=== PATIENT | female | born 1960 | race Caucasian/White ===

== ENCOUNTER 2025-02-25 19:38 | Inpatient (IN) | payer OTHER ==
[~2025-02-25] VITALS: Ht 162.6 cm; Wt 72.6 kg
[2025-02-25 20:16] LABS: BASOPHILS ABSOLUTE AUTO 0.06 K/mm3 (0.00-0.23); BASOPHILS PERCENT AUTO 0 % (0-2); EOSINOPHILS ABSOLUTE AUTO 0.19 K/mm3 (0.00-0.68); EOSINOPHILS PERCENT AUTO 1 % (0-6); Hematocrit 39.5 % (33.0-51.0); Hemoglobin 13.2 g/dL (11.5-16.0); IMMATURE GRAN ABSOLUTE AUTO 0.07 K/mm3 (0.00-0.10); IMMATURE GRAN PERCENT AUTO 0 % (0-1); LYMPHOCYTES ABSOLUTE AUTO 3.25 K/mm3 (0.84-5.20); LYMPHOCYTES PERCENT AUTO 21 % (21-46); MONOCYTES ABSOLUTE AUTO 0.87 K/mm3 (0.16-1.47); MONOCYTES PERCENT AUTO 6 % (4-13); Mean Corpuscular HGB Conc 33.4 g/dL (31.5-36.5); Mean Corpuscular Volume 79 fL (80-100); NEUTROPHILS ABSOLUTE AUTO 11.21 K/mm3 (1.96-9.15); NEUTROPHILS PERCENT AUTO 72 % (41-73); NRBC ABSOLUTE 0.00 K/mm3 (0.00-0.02); NRBC Auto 0.0 /100 WBC (0.0-0.2); Platelet Count 381 K/mm3 (150-400); RDW Coefficient Variation 14.3 % (11.7-14.2); RDW Standard Deviation 41.1 fL (35.1-46.3)
[2025-02-25] MEDS ORDERED: Ondansetron HCl 2 MG / ML 2ML Vial IV ONE (20:20)
[2025-02-25] MEDS ORDERED: FentaNYL Citrate 50 MCG/ML 2 ML Injection IV ONE ×3 (20:20→22:30)
[2025-02-25 20:37] LABS: Alanine Aminotransfer (ALT/SGP 38.0 U/L (12-78); Albumin, Blood 3.4 g/dL (3.4-5.0); Albumin/Globulin Ratio 0.8 (0.8-1.8); Anion Gap 14.0 mmol/L (3-11); Aspartate Aminotrans (AST/SGOT 20.0 U/L (12-37); Bilirubin, Total 0.7 mg/dL (0.1-1.0); Blood Urea Nitrogen 18.0 mg/dL (8-24); CO2, Blood 20.0 mmol/L (21-32); Calcium, Blood 8.5 mg/dL (8.5-10.1); Chloride, Blood 104.0 mmol/L (98-108); Creatinine, Blood 0.82 mg/dL (0.40-1.00); Globulin, Blood 4.2 g/dL (2.2-4.0); Glucose, Blood 134.0 mg/dL (70-99); Potassium, Blood 3.8 mmol/L (3.5-5.5); Sodium, Blood 134.0 mmol/L (136-145); Total Protein, Blood 7.6 g/dL (6.4-8.2)
[2025-02-25] MEDS ORDERED: Ketamine HCl 100 MG / ML 5ML Vial IV ONE (22:40)
[2025-02-26] VITALS (16 sets, daily range): BP systolic 109–153; BP diastolic 55–85
[2025-02-26] MEDS ORDERED: FentaNYL Citrate 50 MCG/ML 2 ML Injection IV PRN ×3 (00:50→12:35)
[2025-02-26] MEDS ORDERED: Ondansetron HCl 2 MG / ML 2ML Vial IV PRN ×3 (00:55→13:40)
[2025-02-26] MEDS ORDERED: Naloxone HCl 0.4MG / ML 1ML Vial IV PRN (00:55)
--- NOTE | 2025-02-26 03:41 | NUR ---
SHIFT SUMMARY: PT WAS ADMITTED THIS SHIFT. PT IS AOX4, VSS. PT IS HAVING PAIN TO L ARM DUE TO THE RADIAL FRACTURE. PAIN IS BEING MANAGED PER eMAR. PT IS NPO, RECIEVING IV FLUIDS. IS AT BEDSIDE. CALL LIGHT IS WITHIN REACH. BED IS LOW AND LOCKED.
[2025-02-26 05:40] LABS: BASOPHILS ABSOLUTE AUTO 0.05 K/mm3 (0.00-0.23); BASOPHILS PERCENT AUTO 1 % (0-2); EOSINOPHILS ABSOLUTE AUTO 0.04 K/mm3 (0.00-0.68); EOSINOPHILS PERCENT AUTO 0 % (0-6); Hematocrit 39.6 % (33.0-51.0); Hemoglobin 12.6 g/dL (11.5-16.0); IMMATURE GRAN ABSOLUTE AUTO 0.03 K/mm3 (0.00-0.10); IMMATURE GRAN PERCENT AUTO 0 % (0-1); LYMPHOCYTES ABSOLUTE AUTO 2.71 K/mm3 (0.84-5.20); LYMPHOCYTES PERCENT AUTO 29 % (21-46); MONOCYTES ABSOLUTE AUTO 0.93 K/mm3 (0.16-1.47); MONOCYTES PERCENT AUTO 10 % (4-13); Mean Corpuscular HGB Conc 31.8 g/dL (31.5-36.5); Mean Corpuscular Volume 83 fL (80-100); NEUTROPHILS ABSOLUTE AUTO 5.58 K/mm3 (1.96-9.15); NEUTROPHILS PERCENT AUTO 60 % (41-73); NRBC ABSOLUTE 0.00 K/mm3 (0.00-0.02); NRBC Auto 0.0 /100 WBC (0.0-0.2); Platelet Count 348 K/mm3 (150-400); RDW Coefficient Variation 14.4 % (11.7-14.2); RDW Standard Deviation 43.2 fL (35.1-46.3)
[2025-02-26 05:57] LABS: Alanine Aminotransfer (ALT/SGP 33.0 U/L (12-78); Albumin, Blood 3.1 g/dL (3.4-5.0); Albumin/Globulin Ratio 0.8 (0.8-1.8); Anion Gap 8.0 mmol/L (3-11); Aspartate Aminotrans (AST/SGOT 17.0 U/L (12-37); Bilirubin, Total 0.8 mg/dL (0.1-1.0); Blood Urea Nitrogen 15.0 mg/dL (8-24); CO2, Blood 26.0 mmol/L (21-32); Calcium, Blood 8.1 mg/dL (8.5-10.1); Chloride, Blood 109.0 mmol/L (98-108); Creatinine, Blood 0.75 mg/dL (0.40-1.00); Globulin, Blood 3.7 g/dL (2.2-4.0); Glucose, Blood 112.0 mg/dL (70-99); Magnesium, Blood 2.4 mg/dL (1.6-2.4); Potassium, Blood 3.9 mmol/L (3.5-5.5); Sodium, Blood 139.0 mmol/L (136-145); Total Protein, Blood 6.8 g/dL (6.4-8.2)
[2025-02-26] MEDS ORDERED: Tranexamic Acid 100 ML IV SCH (07:20)
[2025-02-26] MEDS ORDERED: CefTRIAXone Sodium 2,000 MG in NS 100 ML IV SCH ×2 (07:20→23:00)
[2025-02-26] MEDS ORDERED: CefTRIAXone 2000 MG Vial ONE (09:40)
[2025-02-26] MEDS ORDERED: Bupivacaine 0.25% Epi 1:200000 30 ML Vial ONE (09:56)
--- NOTE | 2025-02-26 10:00 | NUR ---
PRE OP NOTE PT TO PACU FOR PRE-OP IN HOSPITAL BED. PT A&OX4, BREATHING RA, VSS. PT L SHOULDER SHOWS SOME SWELLING AND BRUISING, L ANKLE SWOLLEN C BRUISING NOTED. ANKLE ELEVATED AND ICED. PT CALM. Patient confirms NPO status and agrees with scheduled surgery. Pre-Op teaching done. Pt verbalizes understanding.
[2025-02-26] MEDS ORDERED: Dexamethasone Sod Phos 10 MG/ML 1ML VIAL ONE ×2 (10:15→11:01)
[2025-02-26] MEDS ORDERED: FentaNYL Citrate 50 MCG/ML 2 ML Injection ONE (10:15)
[2025-02-26] MEDS ORDERED: Midazolam HCl 1MG / ML 2ML Vial ONE (10:16)
[2025-02-26] MEDS ORDERED: Ropivacaine 0.5% HCL/PF 5 MG/ML 30ML Vial ONE (10:18)
--- NOTE | 2025-02-26 10:56 | NUR ---
BLOCK NOTE BRACHIAL PLEXUS BLOCK PERFORMED BY TIFFANY WICK. PT ON 6LO2 C CONTINUOUS O2 MONITORING THROUGHOUT PROCEDURE. PT MEDICATED FOR PAIN BY TIFFANY WICK. TIME OUT AT 1034. PT, PROCEDURE AND ALLERGIES IDENTIFIED PRIOR TO PROCEDURE. PETRA ZUÑIGA PRESENT. TIME OUT AT 1034, PROCEDURE START 1040, OROCEDURE END 1045. SEE ANESTHESIA BLOCK NOTE IN CHART FOR MORE INFORMATION.
[2025-02-26] MEDS ORDERED: Ondansetron HCl 2 MG / ML 2ML Vial ONE (11:01)
[2025-02-26] MEDS ORDERED: Sugammadex Sodium 200 MG/2ML SDV (100 MG/ML) ONE (11:14)
[2025-02-26] MEDS ORDERED: Ketorolac Tromethamine 30mg Vial ONE (11:14)
[2025-02-26] MEDS ORDERED: ePHEDrine Sulfate 50 MG/ML 1ML Injection ONE (11:40)
[2025-02-26] MEDS ORDERED: Albuterol 2.5 MG/3 ML VIAL INH PRN (12:30)
[2025-02-26] MEDS ORDERED: HYDROmorphone HCl/Pf 1MG SYR IV PRN ×2 (12:35→13:35)
[2025-02-26] MEDS ORDERED: Prochlorperazine Edisylate 10 mg Vial IV PRN (13:35)
[2025-02-26] MEDS ORDERED: Metoclopramide HCl 5MG / ML 2ML Vial IV PRN (13:40)
[2025-02-26] MEDS ORDERED: Magnesium Hydroxide Conc 10 ML UDC PO PRN (13:45)
--- NOTE | 2025-02-26 14:24 | NUR ---
TRANSFER NOTE PT RECEIVED FROM PACU, REPORT RECEVIED FROM [facility] ON MEDICAL FLOOR, WHERE THE PT WAS PRIOR TO SURGERY. REPORT ALSO RECEIVED FROM PACU NURSE.
[2025-02-26] MEDS ORDERED: Ketorolac Tromethamine 15mg Vial IV SCH (18:00)
--- NOTE | 2025-02-26 18:06 | NUR ---
SHIFT SUMMARY PT AOX4, 1 ASSIST WITH HER BOOT IN PLACE TO THE CHAIR. MEDICATED FOR PAIN PER THE EMAR. UP IN THE CHAIR CURRENTLY AND TOLERATING IT WELL. FAMILY AT THE BS. PT IS FROM [place]. NEEDS REMINDERS TO WHY HER FINGERS ON HER L HAND ARE NUMB, ONCE ORIENTED TO THE FACT THAT A MYLES WAS DONE, SHE CALMS DOWN. FAMILY APPEARS SOMEWHAT ANXIOUS ABOUT HER STATE BUT PT'S VSS. SHE IS IN NO ACUTE DISTRESS. CALL LIGHT WITHIN REACH, BED LOCKED AND IN THE LOWEST POSITION. WILL REPORT TO ONCOMING NURSE.
[2025-02-27 04:21] VITALS: BP 123/65
[2025-02-27 04:57] LABS: BASOPHILS ABSOLUTE AUTO 0.01 K/mm3 (0.00-0.23); BASOPHILS PERCENT AUTO 0 % (0-2); EOSINOPHILS ABSOLUTE AUTO 0.00 K/mm3 (0.00-0.68); EOSINOPHILS PERCENT AUTO 0 % (0-6); Hematocrit 33.2 % (33.0-51.0); Hemoglobin 10.8 g/dL (11.5-16.0); IMMATURE GRAN ABSOLUTE AUTO 0.04 K/mm3 (0.00-0.10); IMMATURE GRAN PERCENT AUTO 0 % (0-1); LYMPHOCYTES ABSOLUTE AUTO 1.58 K/mm3 (0.84-5.20); LYMPHOCYTES PERCENT AUTO 12 % (21-46); MONOCYTES ABSOLUTE AUTO 1.17 K/mm3 (0.16-1.47); MONOCYTES PERCENT AUTO 9 % (4-13); Mean Corpuscular HGB Conc 32.5 g/dL (31.5-36.5); Mean Corpuscular Volume 83 fL (80-100); NEUTROPHILS ABSOLUTE AUTO 10.75 K/mm3 (1.96-9.15); NEUTROPHILS PERCENT AUTO 79 % (41-73); NRBC ABSOLUTE 0.00 K/mm3 (0.00-0.02); NRBC Auto 0.0 /100 WBC (0.0-0.2); Platelet Count 305 K/mm3 (150-400); RDW Coefficient Variation 14.5 % (11.7-14.2); RDW Standard Deviation 42.8 fL (35.1-46.3)
[2025-02-27 05:17] LABS: Anion Gap 10.0 mmol/L (3-11); Blood Urea Nitrogen 16.0 mg/dL (8-24); CO2, Blood 23.0 mmol/L (21-32); Calcium, Blood 8.0 mg/dL (8.5-10.1); Chloride, Blood 106.0 mmol/L (98-108); Creatinine, Blood 0.69 mg/dL (0.40-1.00); Glucose, Blood 144.0 mg/dL (70-99); Magnesium, Blood 2.2 mg/dL (1.6-2.4); Potassium, Blood 4.0 mmol/L (3.5-5.5); Sodium, Blood 135.0 mmol/L (136-145)
[2025-02-27 07:32] VITALS: BP 119/58
[2025-02-27] MEDS ORDERED: Trimethoprim/Sulfamethoxazole DS Tab PO SCH (09:00)
[2025-02-27] MEDS ORDERED: SULTRIDS PO (09:52)
[2025-02-27] MEDS ORDERED: OXYC5 PO (09:53)
[2025-02-27] MEDS ORDERED: ASPI81CH PO (11:02)
[2025-02-27] MEDS ORDERED: Acetaminophen650 M1 PO (11:02)
[2025-02-27] MEDS ORDERED: DOCU100 PO (11:03)
[2025-02-27] MEDS ORDERED: VISBIOME 112.51 EACH PO (11:03)
--- NOTE | 2025-02-27 14:34 | NUR ---
D/C INSTRUCT REVIEWED. STATED UNDERSTANDING. DISCHARGED INTO SELF CARE.
== END 2025-02-27 14:50 | disposition home or self-care (01) | DRG 483 ==
LOC: ER 19:38 → SURS 02-26 00:49 → MEDS 02-26 00:49 → SURS 02-26 13:56
PROVIDERS: Orthopaedic Surgery; Student in an Organized Health Care Education/Training Program; ADMIT Student in an Organized Health Care Education/Training Program
PROC: 0PSD04Z Reposition Left Humeral Head with Internal Fixation Device, Open Approach (ICD-10-PCS; 2025-02-26)
PROC: 0RRK00Z Replacement of Left Shoulder Joint with Reverse Ball and Socket Synthetic Substitute, Open Approach (ICD-10-PCS; principal; 2025-02-26 09:00)
DX: S42.292A Other displaced fracture of upper end of left humerus, initial encounter for closed fracture (principal); S52.92XA Unspecified fracture of left forearm, initial encounter for closed fracture; S42.212A Unspecified displaced fracture of surgical neck of left humerus, initial encounter for closed fracture; S93.402A Sprain of unspecified ligament of left ankle, initial encounter; D72.829 Elevated white blood cell count, unspecified; R73.9 Hyperglycemia, unspecified; E04.2 Nontoxic multinodular goiter; K76.0 Fatty (change of) liver, not elsewhere classified; V86.59XA Driver of other special all-terrain or other off-road motor vehicle injured in nontraffic accident, initial encounter; Z88.5 Allergy status to narcotic agent
CPT/HCPCS: 29105; 36415; 70450; 71260; 73030; 73090; 73120; 73200; 73610; 74177; 76377; 80048; 80053; 83690; 83735; 85025; 86850; 86900; 86901; 94762; 96374-59; 96375-59; 96376-59; 97116; 97162; 97165; 97530; 97535; 99285-25; A9270; J0696; J1100; J1171; J1885; J2250; J2405; J2704; J2795; J3010; J7120; Q9967